=== PATIENT | male | born 1970 | race Caucasian/White ===

== ENCOUNTER 2018-01-06 18:32 | Emergency (ER) | payer OTHER, SELFPAY ==
[2018-01-06 18:41] VITALS: BP 139/89; PULSE 90; RESP 16; TEMP 37; O2SAT 95
--- NOTE | 2018-01-06 18:45 | DI.RAD_ITS ---
SYMPTOMS/DIAGNOSIS: ROTATIONAL INJURY, SWELLING LATERAL MALLEOLUS RIGHT ANKLE: Three views. No priors. There is a 5 mm curvilinear density inferior to the distal fibula suspicious for an avulsion fracture fragment of indeterminate acuity. There is soft tissue swelling about the ankle laterally. No other fracture or dislocation is identified. The bones are normally mineralized. IMPRESSION: 1. 5 mm curvilinear density distal to the distal fibula suspicious for an avulsed fracture of indeterminate acuity. 2. Soft tissue swelling about the lateral ankle.
--- NOTE | 2018-01-06 18:46 | W.ED.GENAD ---
Discharge Plan Discharge Details Chief Complaint: Orthopedic Clinical Impression: Fracture of distal end of fibula Reason For Visit: INJURED FOOT Primary Care Provider: Katie Haque ED Provider: Shila Sinclair Disposition Patient Disposition: HOME Home Meds and New Rx's Prescriptions: Continue lisinopril 5 mg Tablet 5 mg PO DAILY RF: 0 albuterol sulfate 90 mcg/actuation Hfa Aerosol Inhaler 2 puff INHALATION Q6H PRNRF: 0 Discharge Instructions Instructions: Leg Fracture (ED) Additional Instructions: Encourage rest, ice, elevation. Continue with boot until evaluated by orthopedics. Please call orthopedics tomorrow to schedule follow-up appointment next week. X-ray was suspicious for possible fracture of the distal fibula. Tylenol and/or ibuprofen as needed for discomfort. If you develop new or worsening symptoms please seek care urgently once again Stand Alone Forms: Work Release Referrals: Kris Lares MD [ [facility] STAFF PHYSICIAN] - 1 week (Distal fibular fracture [phone]) Discharge Data Discharge Date/Time-TO BE ENTERED AT DEPARTURE: 01/06/18 20:06 Medical Decision Making MDM Narrative Medical decision making narrative: Patient presents today with chief complaint of right ankle pain. He reports that prior to arrival, while running, he suffered an internal rotation event to the right ankle. Since that time he was not able to bear any weight. Feels that when he tries to place weight on the ankle is going to get out. As of the ankle is unstable. Reports that at the time of the incident he was in and see the bottom of his foot from his upright position. States that he has suffered an ankle sprain to this affected ankle several years ago. Denies any altered sensation. Denies other injury at the time of year. Immediately noted swelling and ecchymosis over the lateral malleolus. On exam, patient was noted to have large amount of soft tissue swelling. No palpable deformity. Patient's range of motion is slightly limited with plantar flexion secondary to pain. No pain over the Achilles tendon, this is noted to be intact with a negative Mak test. No pain with palpation of the fibular head or neck. No pain with palpation of the medial aspect of the ankle. No pain with palpation about the foot or calcaneus. Patient initially has minimal discomfort with palpation over the lateral malleolus. However, when I press on the bottom of the foot as if the patient is weightbearing this does express discomfort on the lateral malleolus. He is declining any analgesics. We will obtain radiographic imaging to evaluate for possible bony abnormality. XR reviewed by radiologist. Advised that there is a 5mm ossific fragment distal to the distal aspect of the fibula which may represent acute or chronic avulsion fracture. Reviewed results with patient and his family. Advised that as he has no known history of fracture, although he reports a bad sprain which required extensive treatment when in high school, we will treat for acute fracture. He was placed in a walking boot. Encouraged rest, ice, elevation. Tylenol and/or Motrin as needed for discomfort. He will contact orthopedics tomorrow to schedule follow up appointment. Will use boot until reevaluation. Work note will be deborah, patient works as a real estate salesperson. Patient fitted with walking boot and is still having pain with ambulation. He continues to decline analgesics. Will be given crutches to help with mobility. Pain when weight bearing is over the lateral malleolus, no pain proximally. Patient mobilizing well with crutches. All of his questions and concerns were addressed, he is in agreement with this plan. HPI - General Adult General Mode of arrival: wheelchair. Date/Time Provider Initiated Documentation: 01/06/18 18:39. Limitations to Documentation: no limitations. History of Present Illness 48 year old M presents to the emergency department with the chief complaint of Right ankle pain and swelling, described as severe, Quality is described as aching (no pain at rest, pain only with ambulation. Unable to bear weight. ), and is localized to the right and lower extremity. Patient reports no radiation. Patient started experiencing this minute(s) and it has been intermittent. Immobilization improves symptom(s), Movement worsens symptoms (weight bearing) . Patient notes no other symptoms.. Patient did receive the following treatments prior to arrival, none Related Data Home Medications Medication Instructions Recorded Confirmed albuterol sulfate 2 puff INHALATION Q6H PRN 01/06/18 01/06/18 lisinopril 5 mg PO DAILY 01/06/18 01/06/18 Allergies Allergy/AdvReac Type Severity Reaction Status Date / Time Penicillins Allergy as chilod Unverified 01/06/18 18:40 Tetanus Vaccines and Toxoid Allergy Swelling/Ed Unverified 01/06/18 18:40 suzie General Stated Complaint: Orthopedic SILVESTRE: 3 Review of Systems Constitutional Denies chills and Denies fever(s) Respiratory Comments: No reported respiratory complaints Musculoskeletal Reports as per HPI and Denies tingling Integumentary/Breasts Reports as per HPI and Reports skin swelling (ecchymosis and swelling to right ankle) Neurologic Reports as per HPI, Denies sensory deficit and Denies tingling PFSH Social History Smoking/Tobacco Use Status: Current every day Exam Const General: cooperative, healthy appearing, comfortable, no acute distress and well developed Nutritional Appearance: average body habitus and well nourished Orientation: alert and awake Eyes General: appearance normal, both eyes and all related structures Resp Effort & Inspection: normal respiratory effort, able to speak in complete sentences and no respiratory distress Skin General skin exam: ecchymosis (along lateral aspect of right ankle) Neuro General: alert and awake Cognition: normal cognition Speech: speech normal Gait: gait abnormal (patient is unable to weight bear on affected extremity) Sensory Exam: no sensory deficits noted Extrem General: abnormal to inspection (Exam of RLE significant for swelling and ecchymosis to the lateral aspect of the ankle. Limited ROM, pain is worse with plantar flexion. No pain elicited with palpation. No pain over Achilles, this is palpated to be intact. No pain over proximal fibular head or neck. No pain in foot with palpatio), normal capillary refill, normal exam except as noted, no pedal edema, no calf tenderness and limp (unable to stand on affected extremity) Left lower extremity: abnormal to inspection (as above. No pain over the proximal 5th metatarsal, no midfoot pain) Course Vital Signs Temperature 37 C 01/06/18 18:41 Pulse 90 01/06/18 18:41 Respiratory Rate 16 01/06/18 18:41 Blood Pressure 139/89 01/06/18 18:41 Pulse Oximetry 95 01/06/18 18:41 Temperature 37 C 01/06/18 18:41 Pulse 90 01/06/18 18:41 Respiratory Rate 16 01/06/18 18:41 Blood Pressure 139/89 01/06/18 18:41 Pulse Oximetry 95 01/06/18 18:41
--- NOTE | 2018-01-06 18:49 | ED.GENADUL_ITS ---
Discharge Plan Discharge Details Chief Complaint: Orthopedic Clinical Impression: Fracture of distal end of fibula Reason For Visit: INJURED FOOT Primary Care Provider: Katie Haque ED Provider: Shila Sinclair Disposition Patient Disposition: HOME Home Meds and New Rx's Prescriptions: Continue lisinopril 5 mg Tablet 5 mg PO DAILY RF: 0 albuterol sulfate 90 mcg/actuation Hfa Aerosol Inhaler 2 puff INHALATION Q6H PRNRF: 0 Discharge Instructions Instructions: Leg Fracture (ED) Additional Instructions: Encourage rest, ice, elevation. Continue with boot until evaluated by orthopedics. Please call orthopedics tomorrow to schedule follow-up appointment next week. X-ray was suspicious for possible fracture of the distal fibula. Tylenol and/or ibuprofen as needed for discomfort. If you develop new or worsening symptoms please seek care urgently once again Stand Alone Forms: Work Release Referrals: Kris Lares MD [ [facility] STAFF PHYSICIAN] - 1 week (Distal fibular fracture [phone]) Discharge Data Discharge Date/Time-TO BE ENTERED AT DEPARTURE: 01/06/18 20:06 Medical Decision Making MDM Narrative Medical decision making narrative: Patient presents today with chief complaint of right ankle pain. He reports that prior to arrival, while running, he suffered an internal rotation event to the right ankle. Since that time he was not able to bear any weight. Feels that when he tries to place weight on the ankle is going to get out. As of the ankle is unstable. Reports that at the time of the incident he was in and see the bottom of his foot from his upright position. States that he has suffered an ankle sprain to this affected ankle several years ago. Denies any altered sensation. Denies other injury at the time of year. Immediately noted swelling and ecchymosis over the lateral malleolus. On exam, patient was noted to have large amount of soft tissue swelling. No palpable deformity. Patient's range of motion is slightly limited with plantar flexion secondary to pain. No pain over the Achilles tendon, this is noted to be intact with a negative Mak test. No pain with palpation of the fibular head or neck. No pain with palpation of the medial aspect of the ankle. No pain with palpation about the foot or calcaneus. Patient initially has minimal discomfort with palpation over the lateral malleolus. However, when I press on the bottom of the foot as if the patient is weightbearing this does express discomfort on the lateral malleolus. He is declining any analgesics. We will obtain radiographic imaging to evaluate for possible bony abnormality. XR reviewed by radiologist. Advised that there is a 5mm ossific fragment distal to the distal aspect of the fibula which may represent acute or chronic avulsion fracture. Reviewed results with patient and his family. Advised that as he has no known history of fracture, although he reports a bad sprain which required extensive treatment when in high school, we will treat for acute fracture. He was placed in a walking boot. Encouraged rest, ice, elevation. Tylenol and/or Motrin as needed for discomfort. He will contact orthopedics tomorrow to schedule follow up appointment. Will use boot until reevaluation. Work note will be deborah, patient works as a real estate transaction manager. Patient fitted with walking boot and is still having pain with ambulation. He continues to decline analgesics. Will be given crutches to help with mobility. Pain when weight bearing is over the lateral malleolus, no pain proximally. Patient mobilizing well with crutches. All of his questions and concerns were addressed, he is in agreement with this plan. HPI - General Adult General Mode of arrival: wheelchair . Date/Time Provider Initiated Documentation: 01/06/18 18:39 . Limitations to Documentation: no limitations . History of Present Illness 48 year old M presents to the emergency department with the chief complaint of Right ankle pain and swelling, described as severe, Quality is described as aching (no pain at rest, pain only with ambulation. Unable to bear weight. ), and is localized to the right and lower extremity. Patient reports no radiation. Patient started experiencing this minute(s) and it has been intermittent. Immobilization improves symptom(s), Movement worsens symptoms (weight bearing) . Patient notes no other symptoms.. Patient did receive the following treatments prior to arrival, none Related Data Home Medications Medication Instructions Recorded Confirmed albuterol sulfate 2 puff INHALATION Q6H PRN 01/06/18 01/06/18 lisinopril 5 mg PO DAILY 01/06/18 01/06/18 Allergies Allergy/AdvReac Type Severity Reaction Status Date / Time Penicillins Allergy as chilod Unverified 01/06/18 18:40 Tetanus Vaccines and Toxoid Allergy Swelling/Ed Unverified 01/06/18 18:40 suzie General Stated Complaint: Orthopedic SILVESTRE: 3 Review of Systems Constitutional Denies chills and Denies fever(s) Respiratory Comments: No reported respiratory complaints Musculoskeletal Reports as per HPI and Denies tingling Integumentary/Breasts Reports as per HPI and Reports skin swelling (ecchymosis and swelling to right ankle) Neurologic Reports as per HPI, Denies sensory deficit and Denies tingling PFSH Social History Smoking/Tobacco Use Status: Current every day Exam Const General: cooperative, healthy appearing, comfortable, no acute distress and well developed Nutritional Appearance: average body habitus and well nourished Orientation: alert and awake Eyes General: appearance normal, both eyes and all related structures Resp Effort & Inspection: normal respiratory effort, able to speak in complete sentences and no respiratory distress Skin General skin exam: ecchymosis (along lateral aspect of right ankle) Neuro General: alert and awake Cognition: normal cognition Speech: speech normal Gait: gait abnormal (patient is unable to weight bear on affected extremity) Sensory Exam: no sensory deficits noted Extrem General: abnormal to inspection (Exam of RLE significant for swelling and ecchymosis to the lateral aspect of the ankle. Limited ROM, pain is worse with plantar flexion. No pain elicited with palpation. No pain over Achilles, this is palpated to be intact. No pain over proximal fibular head or neck. No pain in foot with palpatio), normal capillary refill, normal exam except as noted, no pedal edema, no calf tenderness and limp (unable to stand on affected extremity) Left lower extremity: abnormal to inspection (as above. No pain over the proximal 5th metatarsal, no midfoot pain) Course Vital Signs Temperature 37 C 01/06/18 18:41 Pulse 90 01/06/18 18:41 Respiratory Rate 16 01/06/18 18:41 Blood Pressure 139/89 01/06/18 18:41 Pulse Oximetry 95 01/06/18 18:41 Temperature 37 C 01/06/18 18:41 Pulse 90 01/06/18 18:41 Respiratory Rate 16 01/06/18 18:41 Blood Pressure 139/89 01/06/18 18:41 Pulse Oximetry 95 01/06/18 18:41
--- NOTE | 2018-01-06 19:36 | DI.VRAD_ITS ---
EXAM: XR Right Ankle Complete, 3 or more Views EXAM DATE/TIME: 01/06/2018 6:46 PM CLINICAL HISTORY: 48 years old, male; Pain; Ankle; Left; Patient HX: Rotational injury swelling lat mal TECHNIQUE: XR Right ankle 3 or more views. COMPARISON: No relevant prior studies available. FINDINGS: Bones/joints: 5 mm ossific fragment distal to the distal aspect of the fibula may represent acute or chronic avulsion fracture. Soft tissues: Lateral malleolar soft tissue swelling. IMPRESSION: 1. Lateral malleolar soft tissue swelling. 2. 5 mm ossific fragment distal to the distal aspect of the fibula may represent acute or chronic avulsion fracture. Dictated and Authenticated by: Elena Whyte MD. Ordering:EAN ESPINAL MD
== END 2018-01-06 20:06 | disposition home or self-care (01) ==
LOC: ER 20:09
PROVIDERS: Emergency Provider Physician Assistant
DX: S82.831A Other fracture of upper and lower end of right fibula, initial encounter for closed fracture (principal); X50.1XXA Overexertion from prolonged static or awkward postures, initial encounter; Y93.02 Activity, running
CPT/HCPCS: 29505; 99284; 73610; 99283; E0114; L4361

== ENCOUNTER 2018-01-09 08:49 | Outpatient (CLI) | payer OTHER, SELFPAY ==
--- NOTE | 2018-01-09 09:05 | DI.RAD_ITS ---
SYMPTOMS/DIAGNOSIS: RT LEG INJURY RIGHT FOOT: No fracture or dislocation is seen. There are minimal degenerative changes in the tarsal region. The bones are normally mineralized. No bony erosions are seen. IMPRESSION: Minimal degenerative changes.
== END 2018-01-09 09:09 ==
PROVIDERS: Visit Provider Physician Assistant
DX: M79.671 Pain in right foot (principal); M19.071 Primary osteoarthritis, right ankle and foot
CPT/HCPCS: 73630

== ENCOUNTER 2018-02-11 09:14 | Outpatient (REF) | payer BC, SELFPAY ==
[2018-02-11 13:17] LABS: Anion Gap 8.4 mmol/L (3-11); BUN 14 mg/dL (7-18); CO2 28.6 mmol/L (21.0-32.0); CREATININE 1.03 mg/dL (0.70-1.30); Calcium 8.6 mg/dL (8.5-10.1); Chloride 102 mmol/L (98-107); Cholesterol 233 mg/dL (50-200); Glucose 106 mg/dL (70-100); HDL Cholesterol 45 mg/dL (40-60); LDL CHOLESTEROL 141 mg/dL (<100); Sodium 139 mmol/L (136-145); Triglyceride 210 mg/dL (30-150)
== END 2018-02-11 09:34 ==
LOC: NCHCN 09:14
PROVIDERS: Visit Provider Nurse Practitioner
DX: I10 Essential (primary) hypertension (principal); Z00.00 Encounter for general adult medical examination without abnormal findings
CPT/HCPCS: 80048; 80061; 83721

== ENCOUNTER 2018-07-06 15:32 | Outpatient (CLI) | payer OTHER, SELFPAY ==
--- NOTE | 2018-07-06 15:23 | DI.RAD_ITS ---
SYMPTOM/DIAGNOSIS: F/U DISLOCATION RT SUBTALAR JOINT RIGHT FOOT: Comparison is made with 01/09/18. The bones appear osteopenic from disuse. No fracture is identified. The alignment appears normal. There are mild underlying degenerative changes.
== END 2018-07-06 15:52 ==
PROVIDERS: Visit Provider Physician Assistant
DX: S93.31 Subluxation and dislocation of tarsal joint (principal); M85.88 Other specified disorders of bone density and structure, other site
CPT/HCPCS: 73630

== ENCOUNTER 2019-10-18 09:32 | Outpatient (REF) | payer BC, SELFPAY ==
[2019-10-18 22:26] LABS: HCT 45.3 % (40.0-50.0); HGB 15.3 g/dL (13.5-17.5); Mean Corp. HGB Concentration 33.8 g/dL (32.0-36.0); Mean Corpuscular Hemoglobin 31.4 pg (27.0-33.0); Mean Platelet Volume 10.8 fL (8.0-11.0); Platelet Count 256 x1000/uL (130-400); RBC 4.87 m/cumm (4.50-6.00); RBC Distribution Width 12.4 % (11.8-14.1); White Blood Cell Count 6.46 k/cumm (4.4-10.8)
[2019-10-18 23:29] LABS: ALT 81 U/L (16-63); AST 36 U/L (15-37); Albumin 4.1 g/dL (3.4-5.0); Alkaline Phosphatase 106 U/L (46-116); Anion Gap 8.9 mmol/L (3-11); BUN 14 mg/dL (7-18); Bilirubin, Total 0.9 mg/dL (0.2-1.0); CO2 29.1 mmol/L (21.0-32.0); CREATININE 1.03 mg/dL (0.70-1.30); Calcium 9.4 mg/dL (8.5-10.1); Chloride 99 mmol/L (98-107); Cholesterol 241 mg/dL (<200); Glucose 104 mg/dL (74-106); HDL Cholesterol 35 mg/dL (40-60); Potassium 4.3 mmol/L (3.5-5.1); Sodium 137 mmol/L (136-145); Total Protein 7.9 g/dL (6.4-8.2); Triglyceride 524 mg/dL (<150)
[2019-10-19 07:26] LABS: LDL CHOLESTEROL 97 mg/dL (<100)
== END 2019-10-18 09:52 ==
LOC: NCHCN 09:32
PROVIDERS: Visit Provider Family Medicine
DX: Z00.00 Encounter for general adult medical examination without abnormal findings (principal); I10 Essential (primary) hypertension; E78.5 Hyperlipidemia, unspecified; R73.03 Prediabetes
CPT/HCPCS: 80053; 80061; 83721; 85027

== ENCOUNTER 2019-11-23 14:19 | Outpatient (REF) | payer BC, SELFPAY ==
[2019-11-23 21:29] LABS: ALT 77 U/L (16-63); AST 46 U/L (15-37); Calculated LDL 133 mg/dL (<100); Cholesterol 230 mg/dL (<200); GGT 302 U/L (15-85); HDL Cholesterol 34 mg/dL (40-60); Triglyceride 318 mg/dL (<150)
== END 2019-11-23 14:39 ==
LOC: NCHCN 14:19
DX: E78.1 Pure hyperglyceridemia (principal); E78.5 Hyperlipidemia, unspecified; I10 Essential (primary) hypertension
CPT/HCPCS: 80061; 82977; 84450; 84460

== ENCOUNTER 2019-12-14 01:29 | Outpatient (CLI) | payer BC, SELFPAY ==
--- NOTE | 2019-12-14 08:30 | DI.US_ITS ---
EXAM: US ABDOMEN CLINICAL HISTORY: RUQ ABD PAIN,R10.11,ELEVATED TRANSAMINASES,R74.0 TECHNIQUE: Ultrasound abdomen performed using standard protocol. COMPARISON: No exams were available for comparison FINDINGS: ABDOMINAL AORTA AND IVC: Visualized portions normal caliber. PANCREAS: Normal where visualized. LIVER: Normal. Hepatopedal flow in the Portal Vein. 17.7 cm in length. GALLBLADDER: No evidence of cholelithiasis. No evidence of wall thickening. No pericholecystic fluid identified. BILIARY SYSTEM: Common bile duct measures 3 mm. No intrahepatic biliary ductal dilation. BELLO'S SIGN: Negative. KIDNEYS: Kidneys are symmetric in size. No evidence of renal calculi. No evidence of hydronephrosis. No renal mass or cyst identified. SPLEEN: Not enlarged. ASCITES: None seen. IMPRESSION: Mild hepatomegaly otherwise unremarkable abdominal ultrasound. DATA REPOSITORY:
== END 2019-12-14 01:49 ==
DX: R16.0 Hepatomegaly, not elsewhere classified (principal); R10.11 Right upper quadrant pain; R74.0 Nonspecific elevation of levels of transaminase and lactic acid dehydrogenase [LDH]
CPT/HCPCS: 76700

== ENCOUNTER 2020-03-27 09:39 | Outpatient (REF) | payer BC, SELFPAY ==
[2020-03-27 22:08] LABS: ALT 70 U/L (16-63); AST 27 U/L (15-37); Alkaline Phosphatase 76 U/L (46-116); Calculated LDL 161 mg/dL (<100); Cholesterol 245 mg/dL (<200); GGT 342 U/L (15-85); HDL Cholesterol 39 mg/dL (40-60); Triglyceride 225 mg/dL (<150)
[2020-03-27 22:32] LABS: Iron 89 ug/dL (65-175)
[2020-04-03 15:43] LABS: HBs Antibody, Quant <3.1 mIU/mL (See Note); Hepatitis B Surface Ab Negative
[2020-04-03 15:44] LABS: Hepatitis B Surface Ag Negative (Negative); Hepatitis C Ab w Rflx HCV PCR Negative (Negative)
== END 2020-03-27 09:59 ==
LOC: NCHCN 09:39
DX: E78.1 Pure hyperglyceridemia (principal); E78.5 Hyperlipidemia, unspecified; R74.01 Elevation of levels of liver transaminase levels; R10.11 Right upper quadrant pain; Z11.59 Encounter for screening for other viral diseases
CPT/HCPCS: 80061; 86706; 86803; 87340; 82977; 83540; 84075; 84450; 84460

== ENCOUNTER 2021-02-08 15:12 | Outpatient (REF) | payer BC, SELFPAY ==
[2021-02-08 22:31] LABS: ALT 60 U/L (16-63); AST 25 U/L (15-37); Calculated LDL 192 mg/dL (<100); Cholesterol 272 mg/dL (<200); GGT 167 U/L (15-85); HDL Cholesterol 40 mg/dL (40-60); Triglyceride 203 mg/dL (<150)
== END 2021-02-08 15:13 | disposition home or self-care (01) ==
LOC: NCHCN 15:12
PROVIDERS: Visit Provider Nurse Practitioner Family
DX: I10 Essential (primary) hypertension (principal); E78.5 Hyperlipidemia, unspecified; R74.01 Elevation of levels of liver transaminase levels
CPT/HCPCS: 80061; 82977; 84450; 84460

== ENCOUNTER 2021-05-24 08:34 | Outpatient (REF) | payer BC, SELFPAY ==
[2021-05-24 15:21] LABS: ALT 66 U/L (16-63); AST 25 U/L (15-37); Anion Gap 6.8 mmol/L (3-11); BUN 16 mg/dL (7-18); CO2 30.2 mmol/L (21.0-32.0); CREATININE 1.1 mg/dL (0.70-1.30); Calcium 9.3 mg/dL (8.5-10.1); Calculated LDL 129 mg/dL (<100); Chloride 103 mmol/L (98-107); Cholesterol 197 mg/dL (<200); GGT 204 U/L (15-85); Glucose 100 mg/dL (74-106); HDL Cholesterol 45 mg/dL (40-60); Potassium 5.2 mmol/L (3.5-5.1); Sodium 140 mmol/L (136-145); Triglyceride 116 mg/dL (<150)
[2021-05-24 22:17] LABS: PSA, Screening 1.2 ng/mL (0.0-3.5)
== END 2021-05-24 08:35 | disposition home or self-care (01) ==
LOC: NCHCN 08:34
PROVIDERS: Visit Provider Nurse Practitioner Family
DX: E78.5 Hyperlipidemia, unspecified (principal); I10 Essential (primary) hypertension; R74.8 Abnormal levels of other serum enzymes; Z12.5 Encounter for screening for malignant neoplasm of prostate; Z80.42 Family history of malignant neoplasm of prostate
CPT/HCPCS: 80048; 80061; 84153; 82977; 84450; 84460

== ENCOUNTER 2021-08-20 18:48 | Outpatient (REF) | payer BC, SELFPAY ==
[2021-08-20 20:26] LABS: HCT 46.5 % (40.0-50.0); HGB 15.7 g/dL (13.5-17.5); Immature Grans % 0.2; MCHC 33.8 % (32.0-36.0); MCV 91.9 fL (80-95); MPV 10.2 fL (8.0-11.0); Platelet Count 177 10^3/uL (130-400); RBC 5.06 10^6/uL (4.36-5.78); RDW 12.4 % (11.8-14.1); RDW-SD 42.2 fL; WBC 4.36 10^3/uL (4.4-10.8)
[2021-08-20 20:30] LABS: ALT 133 U/L (16-63); AST 102 U/L (15-37); Albumin 3.8 g/dL (3.4-5.0); Alkaline Phosphatase 128 U/L (46-116); Anion Gap 5.7 mmol/L (3-11); BUN 19 mg/dL (7-18); Bilirubin, Total 0.8 mg/dL (0.2-1.0); CO2 30.3 mmol/L (21.0-32.0); Calcium 8.6 mg/dL (8.5-10.1); Chloride 100 mmol/L (98-107); Glucose 125 mg/dL (74-106); Potassium 4.2 mmol/L (3.5-5.1); Sodium 136 mmol/L (136-145); Total Protein 7.8 g/dL (6.4-8.2)
[2021-08-20 21:11] LABS: Absolute Eosinophil Count 0.04 10^3/uL (0.0-0.7); Absolute Lymphocyte Count 1.35 10^3/uL (1.2-3.4); Absolute Neutrophil Count 1.96 10^3/uL (1.2-6.7); Bands % 9; Diff Comment Manual Differential; RBC Morphology Normal
[2021-08-22 11:03] LABS: Varicella IgG Antibody Positive (See Note)
== END 2021-08-20 18:49 | disposition home or self-care (01) ==
LOC: NCHCN 18:48
PROVIDERS: Visit Provider Family Medicine
DX: B02.9 Zoster without complications (principal)
CPT/HCPCS: 80053; 86787; 85025

== ENCOUNTER 2021-11-27 11:32 | Emergency (ER) | payer BC, SELFPAY ==
[2021-11-27 11:41] VITALS: BP 140/94; PULSE 83; RESP 18; TEMP 37.2; O2SAT 97
--- NOTE | 2021-11-27 12:02 | ED.GENADUL_ITS ---
Discharge Plan Disposition Patient Disposition: HOME Condition: Stable Discharge Details Clinical Impression: Traumatic hematoma of right upper arm Primary Care Provider: Katie Haque ED Provider: Davian Patricio Home Meds and New Rx's Prescriptions: No Action rosuvastatin 10 mg tablet 10 mg PO DAILY sertraline 50 mg tablet 75 mg PO DAILY Flovent HFA 110 mcg/actuation HFA aerosol inhaler 1 puff inhalation BID albuterol sulfate [ProAir HFA] 90 mcg/actuation HFA aerosol inhaler 2 puff inhalation Q6H PRN lisinopril 5 mg Tablet 5 mg PO DAILY albuterol sulfate 90 mcg/actuation Hfa Aerosol Inhaler 2 puff INHALATION Q6H PRN Discharge Instructions Instructions: Contusion in Adults (ED) Additional Instructions: You may use [id number] pain medication as needed for discomfort and apply ice to help with swelling. If you have any new or significant worsening of symptoms feel free to return the emergency department for reassessment or if not improving over the next 1 to 2 weeks follow-up with your primary care provider for recheck. Referrals: Katie Haque MD [Primary Care Provider] - (As needed for recheck) Discharge Data Discharge Date/Time-TO BE ENTERED AT DEPARTURE: 11/27/21 12:22 Medical Decision Making Patient presenting to the emergency department for chief complaint of right arm injury. He was struck with a baseball yesterday evening and today having warmth and swelling to the area instructed patient denies any other injury or trauma. Patient has full range of motion of upper extremity, no bony tenderness but soft tissue tenderness to the deltoid and posterior lateral right upper arm. Exam consistent with contusion and hematoma. Exam is otherwise unremarkable. Discussed conservative management with patient along with return and follow-up precautions. Did offer radiological imaging given full range of motion and full strength shared decision-making was utilized and patient will delay imaging unless new or worsening symptoms come about. After discussion of diagnosis and plan of care patient has no further needs, questions, or concerns and states clear understanding to return to the emergency department for any worsening symptoms. This documentation was generated using Support[employer]ation system, please disregard any oddities of phrase or misspellings. HPI General Mode of arrival: ambulatory . Date/Time Provider Initiated Documentation: 11/27/21 12:02 . Limitations to Documentation: no limitations . Information obtained by: patient . History of Present Illness 51 year old M presents to the emergency department with the chief complaint of right arm pain , described as moderate, with intensity rated at 6. Quality is described as aching, and is localized to the right and upper extremity. Patient reports no radiation. Patient started experiencing this day(s) (1) and it has been constant. No relieving factors improve symptom(s), Movement worsens symptoms . Patient notes no other symptoms.. Patient did receive the following treatments prior to arrival, none Related Data Home Medications Medication Instructions Recorded Confirmed albuterol sulfate 90 mcg/actuation 2 puff inhalation Q6H PRN 01/06/18 01/07/19 aerosol inhaler lisinopril 5 mg tablet 5 mg PO DAILY 01/06/18 11/27/21 albuterol sulfate 90 mcg/actuation 2 puff inhalation Q6H PRN 05/31/21 11/27/21 aerosol inhaler (ProAir HFA) fluticasone propionate 110 1 puff inhalation BID 05/31/21 mcg/actuation HFA aerosol inhaler (Flovent HFA) rosuvastatin 10 mg tablet 10 mg PO DAILY 05/31/21 11/27/21 sertraline 50 mg tablet 75 mg PO DAILY 05/31/21 Allergies Allergy/AdvReac Type Severity Reaction Status Date / Time Penicillins Allergy as chilod Unverified 11/27/21 11:44 Tetanus Vaccines and Toxoid Allergy Swelling/Ed Unverified 11/27/21 11:44 suzie General Stated Complaint: Orthopedic SILVESTRE: 3 Review of Systems Narrative: 6 systems reviewed and unremarkable except what is marked below. Musculoskeletal Musculoskeletal: Reports as per HPI Integumentary/Breasts Skin/Breast: Reports skin swelling and Reports unusual bruising PFSH All Active Problems Traumatic hematoma of right upper arm (Acute) Medical History Alcohol abuse Anxiety Hyperlipidemia Obsessive compulsive disorder Social History Smoking/Tobacco Use Status: Former Tobacco Use Smoking risk assessment performed?: Yes Alcohol Intake: current Alcohol Intake frequency: a few times a week Drug use: Never Substance use type: does not use Do you feel safe at home: Yes Do you feel safe in your relationship?: Yes Exam Const General: cooperative, no acute distress and not ill appearing Orientation: alert, awake and oriented x3 Resp Effort & Inspection: normal respiratory effort, able to speak in complete sentences and no respiratory distress Cardio Rate: regular rate Rhythm: regular rhythm Pulses: radial pulses present Skin General skin exam: no rashes or lesions noted Neuro General: patient alert, patient awake, patient oriented x3, moves all extremities and no focal motor deficits Sensory Exam: no sensory deficits noted Extrem General: full ROM, capillary refill normal and normal exam except as noted Right upper extremity: shoulder/upper arm Details: tenderness Location: of the mid-shaft humerus, swelling Location: other (Posterior lateral), axillary nerve sensory function normal, normal ROM, ecchymosis upper arm mid posterolateral Details: single and warmth Course Vital Signs Vital signs: Vital Signs Temperature 37.2 C 11/27/21 11:41 Pulse 83 11/27/21 11:41 Respiratory Rate 18 11/27/21 11:41 Blood Pressure 140/94 H 11/27/21 11:41 Pulse Oximetry 97 11/27/21 11:41 Temperature 37.2 C 11/27/21 11:41 Pulse 83 11/27/21 11:41 Respiratory Rate 18 11/27/21 11:41 Respiratory Effort Non-Labored 11/27/21 11:46 Blood Pressure 140/94 H 11/27/21 11:41 Blood Pressure Position Sitting 11/27/21 11:41 Pulse Oximetry 97 11/27/21 11:41 Oxygen Delivery Method Room Air 11/27/21 11:41 Oxygen Flow Rate 0 11/27/21 11:41 PAWSS Have you Been Recently Intoxicated or Drunk Within the Last 30 days?: No Have you Ever Experienced Previous Episodes of Alcohol Withdrawal?: No Have you ever Experienced Withdrawal Seizures?: No Have you ever Experienced Delirium Tremens(DT)s?: No Have you ever undergone Alcohol Rehabilitation Treatment (i.e, inpt ot outpatient treatment programs)?: No Have you ever Experienced Blackouts?: No Have you ever Combined Alcohol with other Downers within the last 90 days?: No Have you ever Combined Alcohol with any other Substance of Abuse during the last 90 days?: No Positive Blood Alcohol level on Presentation? [PCS.BAL]: No Evidence of Increased Autonomic Activity (i.e. HR>120, tremor, sweating, agitation, nausea)?: No Result: 0
== END 2021-11-27 12:22 | disposition home or self-care (01) ==
PROVIDERS: Emergency Provider Nurse Practitioner Family
DX: S40.021A Contusion of right upper arm, initial encounter (principal); W21.03XA Struck by baseball, initial encounter; Z87.891 Personal history of nicotine dependence
CPT/HCPCS: 99281; 99282

== ENCOUNTER 2021-12-24 08:20 | Day surgery (SDC) | payer BC, SELFPAY ==
--- NOTE | 2021-12-24 06:30 | W.COLOREPORT ---
Colonoscopy Report Date of procedure: 12/24/21 Pre-op diagnosis general: Colon cancer screening Post-op diagnosis procedure note: other (polyps and diverticulosis) Procedure: Colonoscopy with polypectomy Surgeon: Rachel Kaba Anesthesia Type: General:No Airway Estimated blood loss (mL): 3 Pathology: other (transverse polyps x2, sigmoid polyps and rectal polyp) Complications: None Disposition: same day Indications: The patient is here for Colonoscopy pre-op.? He has no family history of colon cancer. He has not had any bowel habit changes. -Discussed colonoscopy bowel prep as well as the procedure. Discussed possible complications of the procedure to include bleeding, pain, perforation, missed small lesion/polyp, sore throat, aspiration and adverse reaction to the medications. Questions were answered to patient?s satisfaction. No guarantees were implied or given.? P// Colonoscopy under sedation Prep: Miralax/Dulcolax Procedure Start Time: 10:34 Procedure End Time: 10:58 Retraction Time: 11 minutes Findings: 3 small sessile polyps mild diverticulosis Procedure Description: After informed consent was obtained the patient was taken to the procedure room and placed in a left decubitous position. Monitors were applied and a time out was done. The patients name, date of , procedure, allergies to medications and metal in their body was reviewed. The patient was then sedated. Once sedated and comfortable a rectal exam was done. External exam was normal. Internal exam revealed a normal sphincter tone and no palpable masses. The prostate felt smooth. The scope was then introduced and retro-flexed. No internal hemorrhoids, polyps or masses were identified on retro-flexion. The scope was then advanced to the cecum without difficulty. The ileocecal vlave and appendiceal orifice were identified. The prep was adequate. The scope was then slowly retracted over 11 minutes back into the rectum. Polyps were removed with cold forceps in the transverse colon, sigmoid colon and rectum. There was mild descending and sigmoid diverticulosis noted. The scope was removed and the patient was woken up and taken back to Same day surgery in stable condition. The patient tolerated the procedure well and there were no immediate complications. Follow up: The patient should follow up in 5 years unless they develop changes in bowel habits or other new gastrointestinal complaints.
--- NOTE | 2021-12-24 06:31 | W.PM.DSUDISC ---
Discharge Plan Disposition Patient Disposition: HOME Condition: Good Discharge Details Reason For Visit: colonoscopy Attending Provider: Rachel Kaba Primary Care Provider: Colette Trimble Home Meds and New Rx's Prescriptions: Continued rosuvastatin 10 mg tablet 10 mg PO DAILY sertraline 50 mg tablet 75 mg PO DAILY Flovent HFA 110 mcg/actuation HFA aerosol inhaler 1 puff inhalation BID albuterol sulfate [ProAir HFA] 90 mcg/actuation HFA aerosol inhaler 2 puff inhalation Q6H PRN lisinopril 5 mg Tablet 5 mg PO DAILY Discontinued polyethylene glycol 3350 17 gram/dose powder 238 g PO ONCE Qty: 238 0RF Rx Instructions: take per colonoscopy instructions bisacodyl [Dulcolax (bisacodyl)] 5 mg tablet,delayed release (DR/EC) 5 mg PO ONCE Qty: 4 0RF Rx Instructions: take per colonoscopy instructions Discharge Instructions Instructions: Colorectal Polyps (DC), Diverticulosis (DC) Additional Instructions: Findings: 3 polyps diverticulosis Follow up: 5 years Please call if you develop: fevers >101.5 Nausea or Vomiting Abdominal pain that is not transient Rectal bleeding that is more then a tbsp A hard abdomen and inability to pass gas DAY SURGERY UNIT POST ENDOSCOPY INSTRUCTIONS Instructions for everyone who is given Anesthesia: For your safety, please do the following for the next 24 Hours: a. Do not drive or operate dangerous equipment b. Do not drink alcohol beverages or use any recreational drugs for the first 24 hours or while taking pain medications. The medications in your body may have a reaction that can be dangerous. c. Do not make any important decisions or sign any important papers 1. Generally there are no restrictions on your activity after a day or so has gone by, but you may feel a bit fatigued for a few days. 2. After you arrive home you may have a light meal and return to a normal diet as you can tolerate it without feeling sick to your stomach. 3. After surgery, you may feel pain or discomfort. This should be only transient, but if it persists please contact your doctor. 4. If there are any questions regarding the findings of your procedure, please feel free to contact your doctor. 6. If you are unable to contact your doctor with a problem, contact the hospital at [phone]. 7. Continue all your regular medications unless directed otherwise. I understand the above instructions and have no questions. Signature of Patient or Responsible Adult Escort Date/Time Name of Responsible Adult Escort Signature of Nurse Date/Time Activity:: Activity as Tolerated Diet:: high fiber diet Discharge Orders Discharge Orders: Discharge Order (Routine); Ordered 12/24/21 Ordered By: Rachel Kaba
[2021-12-24 08:51] VITALS: BP 141/98; PULSE 81; RESP 20; TEMP 36.5; O2SAT 93
[2021-12-24] MEDS: Lactated Ringers 1,000 ML 80 ML IV (09:32)
--- NOTE | 2021-12-24 10:20 | W.ANESPRE ---
General Info Date of Service Date Performed: 12/24/21 Height: 5 ft 11.5 in Weight: 93.3 kg Body Mass Index (BMI): 28.3 Surgical Procedure: Operation Date: 12/24/21 11:05 Proposed Procedure Side Surgeon p Colonoscopy Rachel Kaba MD Meds Allergies and Home Medications Allergies Allergy/AdvReac Type Severity Reaction Status Date / Time Penicillins Allergy as child Unverified 12/24/21 08:49 Tetanus Vaccines and Toxoid Allergy Swelling/Ed Unverified 12/24/21 08:49 suzie Home Medication Medication Instructions Recorded lisinopril 5 mg tablet 5 mg PO DAILY 01/06/18 albuterol sulfate 90 mcg/actuation 2 puff inhalation Q6H PRN 05/31/21 aerosol inhaler (ProAir HFA) fluticasone propionate 110 1 puff inhalation BID 05/31/21 mcg/actuation HFA aerosol inhaler (Flovent HFA) rosuvastatin 10 mg tablet 10 mg PO DAILY 05/31/21 sertraline 50 mg tablet 75 mg PO DAILY 05/31/21 bisacodyl 5 mg tablet,delayed 5 mg PO ONCE colonscopy bowel prep 12/14/21 release (Dulcolax (bisacodyl)) #4 tabs polyethylene glycol 3350 17 238 g PO ONCE colonoscopy prep 12/14/21 gram/dose oral powder #238 grams Current Visit Medications: Current Medications Generic Name Dose Route Start Last Admin Trade Name Freq PRN Reason Stop Dose Admin Hyoscyamine Sulfate 0.125 mg 12/24/21 06:32 Hyoscyamine 0.125 Mg Sl/Oral/Chew SL DIRECTED PRN Ringer's Solution 1,000 mls @ 80 mls/hr 12/24/21 06:00 12/24/21 09:32 IV 01/20/22 23:59 80 mls/hr INFUSION SOHA Administration IV Miscellaneous Supplies 1 each 12/24/21 06:00 Iv Access IV 01/20/22 23:59 DIRECTED SOHA Ondansetron HCl 4 mg 12/24/21 06:32 Ondansetron 4 Mg/2 Ml Vial IVP Q4H PRN PRN Nausea / Vomiting Sodium Chloride 0 ml 12/24/21 06:00 Normal Saline Flush 10 Ml Syr IV 01/20/22 23:59 PRN PRN Sodium Chloride 0 ml 12/24/21 06:00 Normal Saline 10 Ml Vial IJ 01/20/22 23:59 DIRECTED PRN Sterile Water 0 ml 12/24/21 06:00 Water,Injection,Sterile 10 Ml Vial IJ 01/20/22 23:59 DIRECTED PRN PFSH Active Problems Active Problems: Problem Status Onset Code Traumatic hematoma of right upper arm S40.021A Medical History Medical History Alcohol abuse Anxiety Hyperlipidemia Obsessive compulsive disorder Surgical History Surgical History H/O vasectomy Tobacco Smoking/Tobacco Use Status: Former Tobacco Use Smokeless tobacco user: other Alcohol Alcohol Intake: current Alcohol intake frequency: a few times a week Alcohol type: beer Substance Use Substance use: Never Substance use type: does not use Vital Signs and Lab Results Vital Signs Most Recent Vital Signs in EMR: Most Recent Vital Signs Temp Pulse Resp BP Pulse Ox 36.5 C 81 20 141/98 H 93 12/24/21 08:51 12/24/21 08:51 12/24/21 08:51 12/24/21 08:51 12/24/21 08:51 Lab Results Blood Type / Crossmatch: No Data to Display Complete Blood Count: No Data to Display Complete Metabolic Panel: No Data to Display Liver Function Panel: No Data to Display Coagulation Panel: No Data to Display Cardiac Panel: No Data to Display Arterial Blood Gas: No Data to Display Venous Blood Gas: No Data to Display Pancreas Panel: No Data to Display Thyroid Panel: No Data to Display Infectious Disease: No Data to Display Blood Cultures: No Data to Display Toxicology Panel: No Data to Display Anesthesia Assessment and Plan Anesthesia History Personal History: No History of Anesthesia Complications Family History: No Family History of Anesthesia Complications Exercise Tolerance Exercise Tolerance: Metabolic Equivalents>4 Pertinent Negatives Pertinent Negatives: No Symptoms of GERD, No Major Cardiovascular Symptoms or Complaints, No Major Pulmonary Symptoms or Complaints (Asthma mild I feel great) and No History of CVA/TIA Cardiac & Pulmonary Exam Cardiac Exam: Normal S1/S2 Heart Sounds Pulmonary Exam: Clear Bilateral Breath Sounds Implantable Cardiac Device Does patient have a Pacemaker or an ICD?: No Airway Exam Known Difficult Airway: No Mallampati Class: 1 Mouth Opening: Normal (> 3cm) Thyromental Distance: Greater than 3 cm Neck Range of Motion: Full ROM Neck Circumference: Normal Teeth Condition: Normal Dentition ASA Classification ASA Score: ASA 2 Emergency Case?: No NPO Status NPO Status: NPO Clears >2 hours, Solids >8 hours Anesthesia Plan Resuscitation Status: Full Code Anesthesia Technique: General Anesthesia Airway Planned: Natural Airway Monitors Used: Standard Monitors
[2021-12-24 10:22] VITALS: BMI 28.3
--- NOTE | 2021-12-24 10:53 | BOWEL_PTH ---
PATIENT: Edwin Menjivar LOC: [facility] U#:[id number] AGE/SX: 51/M ROOM: RE12/24/[address]: Rachel Kaba MD : 1970 BED: DIS: 12/24/2021 SPEC #: [id number] RECD: 12/24/21 12:36 STATUS: MARC REQ #: [id number] FINESSE: 12/24/21 10:[address]: Rachel Kaba DEPT: Surgical Specimen RECD BY: Natasha Weber ENTERED: 12/24/21 12:37 SP TYPE: Bowel OTHR DR: Colette Trimble Tissues: 1 - BIOPSY BOWEL 2 - BIOPSY BOWEL 3 - BIOPSY BOWEL Procedures: GROSS AND MICRO LEVEL 4 Comments: [id number]
[2021-12-24 11:08] VITALS: BP 119/89; PULSE 80; RESP 17; TEMP 36.3; O2SAT 96
--- NOTE | 2021-12-24 11:10 | W.ANESPOSTOP ---
Postoperative Evaluation Date, Time and Location Date Performed: 12/24/21 Time Performed: 11:12 Patient Location: Day Surgery Unit Vital Signs Most Recent Imported Vital Signs: Most Recent Vital Signs Temp Pulse Resp BP Pulse Ox 36.5 C 81 20 141/98 H 93 12/24/21 08:51 12/24/21 08:51 12/24/21 08:51 12/24/21 08:51 12/24/21 08:51 Most Recent Manually Entered Vital Signs: Adult Blood Pressure: 119/89 Heart Rate: 74 Respirations: 12 Oxygen Saturation (%): 95 Temperature (C): 36.3 C Pain Score (0-10 Scale): 0 Pain Score Most Recent Pain Score: Most Recent Pain Score Pain Level 0 12/24/21 08:51 Assessment Mental Status: Awake (Alert & Oriented to Patient Baseline) Airway and Respiratory Function: Patent airway with normal (patient baseline) respiratory exam Cardiovascular Function: Hemodynamically Stable Hydration Status: Adequately Hydrated Nausea & Vomiting: No Nausea or Vomiting Pain: Pt. Denies Any Pain Peripheral Nerve Block: Patient did not receive a nerve block
[2021-12-24 11:12] VITALS: BP 119/89; PULSE 74; RESP 12; TEMPC 36.3; O2SAT 95
[2021-12-24 11:40] VITALS: BP 137/95; PULSE 74; RESP 20; TEMP 36.3; O2SAT 93
== END 2021-12-24 12:20 | disposition home or self-care (01) ==
PROVIDERS: PCP Nurse Practitioner Family; Visit Provider Surgery
PROC: 0DJD8ZZ Inspection of Lower Intestinal Tract, Via Natural or Artificial Opening Endoscopic (ICD-10-PCS; CPT 45378; principal; 2021-12-24 11:00)
DX: Z12.11 Encounter for screening for malignant neoplasm of colon (principal); K63.5 Polyp of colon; K57.30 Diverticulosis of large intestine without perforation or abscess without bleeding
CPT/HCPCS: 45380; 88305

== ENCOUNTER 2022-05-28 17:19 | Outpatient (REF) | payer BC, SELFPAY ==
[2022-05-28 15:24] LABS: ALT 58 U/L (16-63); AST 29 U/L (15-37); Albumin 4.4 g/dL (3.4-5.0); Alkaline Phosphatase 80 U/L (46-116); Anion Gap 5.7 mmol/L (3-11); BUN 19 mg/dL (7-18); Bilirubin, Total 0.8 mg/dL (0.2-1.0); CO2 30.3 mmol/L (21.0-32.0); Calcium 9.8 mg/dL (8.5-10.1); Calculated LDL 140 mg/dL (<100); Chloride 100 mmol/L (98-107); Cholesterol 221 mg/dL (<200); Estimated GFR 91.12 (mL/min/1.73m2); Glucose 102 mg/dL (74-106); HDL Cholesterol 46 mg/dL (40-60); Potassium 4.8 mmol/L (3.5-5.1); Sodium 136 mmol/L (136-145); Total Protein 8.1 g/dL (6.4-8.2); Triglyceride 177 mg/dL (<150)
== END 2022-05-28 17:20 | disposition home or self-care (01) ==
LOC: NCHCN 17:19
PROVIDERS: PCP Nurse Practitioner Family; Visit Provider Nurse Practitioner Family
DX: Z00.00 Encounter for general adult medical examination without abnormal findings (principal); E78.1 Pure hyperglyceridemia; I10 Essential (primary) hypertension; R16.0 Hepatomegaly, not elsewhere classified
CPT/HCPCS: 80053; 80061

== ENCOUNTER 2023-09-26 18:07 | Outpatient (REF) | payer BC, SELFPAY ==
[2023-09-26 21:05] LABS: HCT 44.9 % (40.0-50.0); HGB 15.4 g/dL (13.5-17.5); MCH 31.2 pg (27.0-33.0); MCHC 34.3 % (32.0-36.0); MCV 91 fL (80-95); MPV 10.6 fL (8.0-11.0); Platelet Count 258 10^3/uL (130-400); RBC 4.93 10^6/uL (4.36-5.78); RDW 12.3 % (11.8-14.1); RDW-SD 40.9 fL; WBC 7.15 10^3/uL (4.4-10.8)
[2023-09-26 21:24] LABS: ALT 54 U/L (16-63); AST 35 U/L (15-37); Albumin 4.3 g/dL (3.4-5.0); Alkaline Phosphatase 73 U/L (46-116); Anion Gap 4.6 mmol/L (3-11); BUN 17 mg/dL (7-18); Bilirubin, Total 0.6 mg/dL (0.2-1.0); CO2 28.4 mmol/L (21.0-32.0); Calcium 9.4 mg/dL (8.5-10.1); Calculated LDL 88 mg/dL (<100); Chloride 103 mmol/L (98-107); Cholesterol 207 mg/dL (<200); Estimated GFR 90.56 (mL/min/1.73m2); Glucose 96 mg/dL (74-106); HDL Cholesterol 46 mg/dL (40-60); Potassium 4.1 mmol/L (3.5-5.1); Sodium 136 mmol/L (136-145); Total Protein 8.2 g/dL (6.4-8.2); Triglyceride 368 mg/dL (<150)
[2023-09-29 09:42] LABS: PSA, Screening 0.9 ng/mL (<=3.5)
== END 2023-09-26 18:08 | disposition home or self-care (01) ==
LOC: NCHCN 18:07
PROVIDERS: PCP Nurse Practitioner Family; Visit Provider Nurse Practitioner Family
DX: Z00.00 Encounter for general adult medical examination without abnormal findings (principal); Z13.220 Encounter for screening for lipoid disorders; Z12.5 Encounter for screening for malignant neoplasm of prostate; Z13.0 Encounter for screening for diseases of the blood and blood-forming organs and certain disorders involving the immune mechanism
CPT/HCPCS: 80053; 80061; 84153; 85027

== ENCOUNTER 2024-09-29 15:37 | Outpatient (REF) | payer BC, SELFPAY ==
[2024-09-29 21:43] LABS: HCT 45.2 % (40.0-50.0); HGB 15.5 g/dL (13.5-17.5); MCH 31.3 pg (27.0-33.0); MCHC 34.3 % (32.0-36.0); MCV 91 fL (80-95); MPV 10.5 fL (8.0-11.0); Platelet Count 248 10^3/uL (130-400); RBC 4.95 10^6/uL (4.36-5.78); RDW 12.4 % (11.8-14.1); RDW-SD 41.1 fL; WBC 8.42 10^3/uL (4.4-10.8)
[2024-09-29 22:23] LABS: ALT 49 U/L (16-63); AST 35 U/L (15-37); Albumin 4.2 g/dL (3.4-5.0); Alkaline Phosphatase 85 U/L (46-116); Anion Gap 5.4 mmol/L (3-11); BUN 21 mg/dL (7-18); Bilirubin, Total 0.8 mg/dL (0.2-1.0); CO2 30.6 mmol/L (21.0-32.0); CREATININE 0.9 mg/dL (0.70-1.30); Calcium 9.6 mg/dL (8.5-10.1); Calculated LDL 93 mg/dL (<100); Chloride 101 mmol/L (98-107); Cholesterol 200 mg/dL (<200); Estimated GFR 102.12 (mL/min/1.73m2); Glucose 114 mg/dL (74-106); HDL Cholesterol 42 mg/dL (>or=40); Potassium 4.1 mmol/L (3.5-5.1); Sodium 137 mmol/L (136-145); TSH (W/Ref FT4) 0.71 uIU/mL (0.36-3.74); Total Protein 8.3 g/dL (6.4-8.2); Triglyceride 325 mg/dL (<150)
[2024-09-30 19:07] LABS: PSA, Screening 1.1 ng/mL (<=3.5)
== END 2024-09-29 15:38 | disposition home or self-care (01) ==
LOC: NCHCN 15:37
PROVIDERS: PCP Nurse Practitioner Family; Visit Provider Nurse Practitioner Family
DX: Z00.00 Encounter for general adult medical examination without abnormal findings (principal); Z12.5 Encounter for screening for malignant neoplasm of prostate; F42.9 Obsessive-compulsive disorder, unspecified
CPT/HCPCS: 80053; 80061; 84153; 85027; 84443